=== PATIENT | male | born 1995 | race African-American/Black ===

== ENCOUNTER 2024-05-23 23:13 | Day surgery (SDC) | payer OTHER, SELFPAY ==
[2024-05-23] VITALS (19 sets, daily range): BP systolic 88–131; BP diastolic 39–93; BMI 24.1
[2024-05-23] MEDS: ATIVAN 2 MG IV (21:42)
[2024-05-23 21:44] LABS: % Basophils 0.3 % (0-2); % Eosinophils 0.4 % (0-6); % Immature Granulocytes 0.3 % (0-0.5); % Lymphocytes 38.5 % (20.5-51.1); % Monocytes 5.5 % (1.7-9.3); Absolute Eosinophils 0.1 10^3/uL (0-0.7); Absolute Lymphocytes 5.2 10^3/uL (1.2-3.4); Absolute Monocytes 0.7 10^3/uL (0.1-0.6); Absolute Neutrophils 7.4 10^3/uL (1.4-6.5); Hematocrit 37.7 % (39.0-52.0); Hemoglobin 13.5 g/dL (13.0-18.0); Mean Corp Hgb Conc. 35.8 g/dL (33.0-37.0); Mean Corpuscular Hgb 29.9 pg (27.0-31.0); Mean Corpuscular Volume 83.4 fL (80.0-94.0); Mean Platelet Volume 10.4 fL (7.4-10.4); Nucleated Red Blood Cells % 0 % (-); Platelet Count 305 10^3/uL (130-400); Red Blood Cell Count 4.52 10^6/uL (4.70-6.10); Red Cell Dist. Width 11.7 % (11.5-14.5); White Blood Cell Count 13.4 10^3/uL (4.8-10.8)
--- NOTE | 2024-05-23 21:53 | ED.GENMED ---
History of Present Illness
<NICHOLE Reynoso Jr. Last Filed: 05/23/24 22:14>
General
Chief Complaint: Foreign Body Ingestion
Source: patient and police
Exam Limitations: none
Time Seen by Provider: 05/23/24 17:25
Nursing documentation reviewed up to this point in time: agreed with
History of Present Illness
History of Present Illness:
28-year-old male [facility] after swallowing a 'FlexPen'. He did this due to being upset that he was going to a restrictive housing unit. Denies any additional symptoms or chest pain shortness of breath nausea vomiting. Able to
tolerate secretions did not do this in an attempt to harm himself.
Review of Systems
<NICHOLE Reynoso Jr. Last Filed: 05/23/24 22:14>
Review of Systems
Allergies reviewed?: Yes
All Other Systems: ROS reviewed and negative except as documented in HPI and ROS
Phy Exam
<NICHOLE Reynoso Jr. Last Filed: 05/23/24 22:14>
Physical Exam
Physical Exam:
GENERAL: Alert , in no apparent distress
EYE: pupils equal and reactive
NECK: Supple, no significant adenopathy.
ENT: o/p clr, mmm.
CARDIAC: Regular rate and rhythm .
LUNGS: Clear breath sounds bilaterally, no acute respiratory distress, no wheezes/rales/rhonchi
ABDOMEN: Soft, without focal tenderness, no r/g, no cvat
NEUROLOGICAL: Alert and oriented, no focal neuro deficits
SKIN: Warm and dry, skin intact.
MUSCULOSKELETAL: No edema, well perfused.
PSYCH: Normal and appropriate interaction.
Course
<NICHOLE Reynoso Jr. Last Filed: 05/23/24 22:14>
Orders/Labs/Results
Orders:
Orders
05/23/24 17:02
Portable Chest Xray [CR Chest Portable - 1 View] Urgent
Comment:
Reason For Exam: fopreign body ingestion
Reason Study Needs to be Portable: Unable to Transport
05/23/24 17:32
CT Chest W/o Iv Contrast Urgent
Comment:
Reason For Exam: swallowed plastic pen, possible stuck in esophagus
CT Neck W/o Iv Contrast Urgent
Comment:
Reason For Exam: swallowed plastic pen, possible stuck in esophagus
05/23/24 21:30
Haloperidol Lactate [Haldol] 5 mg IV NOW STA
Lorazepam [Ativan] 2 mg IV NOW STA
05/23/24 21:31
Dexamethasone Sod Phosphate [Decadron] 20 mg .ROUTE .STK-MED ONE
Lorazepam [Ativan] 2 mg .ROUTE .STK-MED ONE
05/23/24 21:32
Lidocaine HCl/Pf [Xylocaine-Mpf 1% Vial] 50 mg .ROUTE .STK-MED ONE
Ondansetron Injectable [Zofran] 4 mg .ROUTE .STK-MED ONE
Propofol [Diprivan] 40 ml .ROUTE .STK-MED
Rocuronium [place] [Rocuronium] 50 mg .ROUTE .STK-MED ONE
Succinylcholine Chloride [Succinylcholine] 200 mg .ROUTE .STK-MED ONE
Sugammadex Sodium [Bridion] 200 mg .ROUTE .STK-MED ONE
05/23/24 21:38
BMP [Basic Metabolic Panel] Urgent
Rocuronium [place] [Rocuronium] 50 mg .ROUTE .STK-MED ONE
05/23/24 21:39
CBC/With Diff [Complete Blood Count/With Diff] Urgent
05/23/24 21:56
Midazolam HCl [Versed] 2 mg .ROUTE .STK-MED ONE
Abnormal Lab Results
05/23/24 05/23/24
21:38 21:39
WBC 13.4 H 10^3/uL
(4.8-10.8)
RBC 4.52 L 10^6/uL
(4.70-6.10)
Hct 37.7 L %
(39.0-52.0)
Absolute Neuts (auto) 7.4 H 10^3/uL
(1.4-6.5)
Absolute Lymphs (auto) 5.2 H 10^3/uL
(1.2-3.4)
Absolute Monos (auto) 0.7 H 10^3/uL
(0.1-0.6)
Carbon Dioxide 18 L mmol/L
(22-30)
Glucose 128 H mg/dl
(70-99)
05/23/24 21:39
05/23/24 21:38
Vital Signs
Initial and Last Documented VS:
Initial Vital Signs
BP Pulse Ox
131/76 100
05/23/24 16:48 05/23/24 16:48
Last Documented Vital Signs
Temp Pulse Resp BP Pulse Ox
98.1 F 87 23 128/74 99
05/23/24 16:49 05/23/24 20:00 05/23/24 20:00 05/23/24 21:45 05/23/24 21:45
<Yann Campos, DO - Last Filed: 05/23/24 22:06>
Orders/Labs/Results
Orders:
Orders
05/23/24 17:02
Portable Chest Xray [CR Chest Portable - 1 View] Urgent
Comment:
Reason For Exam: fopreign body ingestion
Reason Study Needs to be Portable: Unable to Transport
05/23/24 17:32
CT Chest W/o Iv Contrast Urgent
Comment:
Reason For Exam: swallowed plastic pen, possible stuck in esophagus
CT Neck W/o Iv Contrast Urgent
Comment:
Reason For Exam: swallowed plastic pen, possible stuck in esophagus
05/23/24 21:30
Haloperidol Lactate [Haldol] 5 mg IV NOW STA
Lorazepam [Ativan] 2 mg IV NOW STA
05/23/24 21:31
Dexamethasone Sod Phosphate [Decadron] 20 mg .ROUTE .STK-MED ONE
Lorazepam [Ativan] 2 mg .ROUTE .STK-MED ONE
05/23/24 21:32
Lidocaine HCl/Pf [Xylocaine-Mpf 1% Vial] 50 mg .ROUTE .STK-MED ONE
Ondansetron Injectable [Zofran] 4 mg .ROUTE .STK-MED ONE
Propofol [Diprivan] 40 ml .ROUTE .STK-MED
Rocuronium [place] [Rocuronium] 50 mg .ROUTE .STK-MED ONE
Succinylcholine Chloride [Succinylcholine] 200 mg .ROUTE .STK-MED ONE
Sugammadex Sodium [Bridion] 200 mg .ROUTE .STK-MED ONE
05/23/24 21:38
BMP [Basic Metabolic Panel] Urgent
Rocuronium [place]ley [Rocuronium] 50 mg .ROUTE .STK-MED ONE
05/23/24 21:39
CBC/With Diff [Complete Blood Count/With Diff] Urgent
05/23/24 21:56
Midazolam HCl [Versed] 2 mg .ROUTE .STK-MED ONE
Abnormal Lab Results
05/23/24 05/23/24
21:38 21:39
WBC 13.4 H 10^3/uL
(4.8-10.8)
RBC 4.52 L 10^6/uL
(4.70-6.10)
Hct 37.7 L %
(39.0-52.0)
Absolute Neuts (auto) 7.4 H 10^3/uL
(1.4-6.5)
Absolute Lymphs (auto) 5.2 H 10^3/uL
(1.2-3.4)
Absolute Monos (auto) 0.7 H 10^3/uL
(0.1-0.6)
Carbon Dioxide 18 L mmol/L
(22-30)
Glucose 128 H mg/dl
(70-99)
05/23/24 21:39
05/23/24 21:38
Vital Signs
Initial and Last Documented VS:
Initial Vital Signs
BP Pulse Ox
131/76 100
05/23/24 16:48 05/23/24 16:48
Last Documented Vital Signs
Temp Pulse Resp BP Pulse Ox
98.1 F 87 23 128/74 99
05/23/24 16:49 05/23/24 20:00 05/23/24 20:00 05/23/24 21:45 05/23/24 21:45
<Jasen Aguilera Jr., PA-C - Last Filed: 05/23/24 22:14>
MDM/Problems Addressed
MDM/Problems Addressed:
48-year-old male presenting after swallowing a flex pen from present. No distress here tolerating secretions normal heart lung exam normal abdominal examination normal posterior pharynx vital signs normal. CT scan showing potential foreign body at
the gastric duodenal junction. Case discussed with GI that will take him to the GI suite for foreign body removal. Otherwise if it cannot be visualized plan for repeated x-rays as an outpatient.
2150: Patient was becoming agitated that he was being restrained due to being a prisoner with the [facility]. He was being very combative with the [facility] guards patient was given dose of Ativan to help calm him down. This seemed to work very
well. Patient left for the GI suite in stable condition in no distress.
<Yann Campos DO - Last Filed: 05/23/24 22:06>
*Critical Care Note
Total Time (30-74mins, 75-104mins- exclusive of procedures): 30 minutes
ED Attending Note
<Jasen Aguilera Jr., PA-C - Last Filed: 05/23/24 22:14>
-
Portions of this chart may have been created with voice recognition software.� Occasional wrong word or��sound alike� substitutions may have occurred due to the inherent limitations of voice recognition software.
<Yann Campos DO - Last Filed: 05/23/24 22:06>
ED Attending Note
Patient seen and examined by attending physician: Yes
I performed the substantive portion of visit, reviewed & personally made and approve the management plan that is documented in note by myself or AUSTEN.: Yes
ED Attending Note:
28-year-old male presents after he swallowed a foreign body. called to room as pt acting out. attempted to swallow iv caps. spit them out. d/w GI. will take to endo suite.
Discharge Plan
Departure
Patient Disposition: OR
Date of Disposition: 05/23/24
Time of Disposition: 21:53
Admit to: GI lab
Admit to doctor: Dawson
Presentation/result/management discussed w/ accepting MD/DO: GI doctor
Patient with high blood pressure during this ER visit?: No
Condition: Fair
Covid-19: Not Applicable
Discharge Problem:
Foreign body, swallowed, Agitation
Instructions: Swallowed Objects, Adult (DC), MODERATE SEDATION ADULT
Referrals:
[facility] [Family Provider] -
Activity Restrictions/Additional Instructions:
You came to the emergency department today with concerns of a swallowed foreign body. Please do not do this in the future. Return for any worsening, new or concerning symptoms.
Interventions
Interventions:
*Risk Screen - Suicide Last Done: 05/23/24 16:49
*General Assessment Last Done: 05/23/24 16:49
*Neglect/Abuse Screening Last Done: 05/23/24 16:49
ED- Fall Risk Assessment Last Done: 05/23/24 18:13
*ED COVID-19 Vaccine History Last Done: 05/23/24 18:13
AV-Gubfhv-Fdkeorvlvq Assessment Last Done: 05/23/24 18:13
ED- Pulmonary Assessment Last Done: 05/23/24 18:13
ED-EENT Assessment Last Done: 05/23/24 18:13
Discharge Date and Time
Print Language: WOLOF
[2024-05-23 21:59] LABS: Blood Urea Nitrogen 10 mg/dl (9-20); Calcium 9.5 mg/dl (8.4-10.2); Carbon Dioxide 18 mmol/L (22-30); Chloride 101 mmol/L (98-107); Estimated Creatinine Clearance > 125 ml/min; Glucose 128 mg/dl (70-99); Potassium 3.5 mmol/L (3.5-5.1); Sodium 141 mmol/L (135-145); eGFR > 60.00
--- NOTE | 2024-05-23 22:00 | CON.GI ---
Consultation
-
Date/Time Consultation Requested: 05/23/24 8:54pm
Date/Time Consultation Performed: 05/23/24 10:01pm
Requesting Provider: Jasen Aguilera
Performing Provider: Andrade Osman
Reason for Consultation: foreign body ingestion
Medical History
Chief Complaint / HPI
Chief Complaint: foreign body ingestion
History of Present Illness:
28yo prisoner ingested a flex pen cap tonight. Reported CP on admission. Chest CT showed foreign body likely at gastroduodenal junction.
Past Medical History
Past Medical History: None (Pt self reports diabetes)
Past Surgical History: None
Social History
Living: Intermediate
Family History
Family History: Reviewed & Not Pertinent
Allergies / Home Medications
Allergy/AdvReac Type Severity Reaction Status Date / Time
diphenhydramine Allergy Severe Swelling Verified 05/23/24 16:48
[From Benadryl]
Review of Systems
-
All other systems: A 12 pt ROS was Negative except as stated above in HPI
Vital Signs
Temp Pulse Resp BP Pulse Ox
98.1 F 87 23 128/74 99
05/23/24 16:49 05/23/24 20:00 05/23/24 20:00 05/23/24 21:45 05/23/24 21:45
Physical Exam
Exam
General: Well Developed, Well Nourished and Other (combative with staff)
HEENT: Normocephalic
Respiratory: Non Labored Respirations
GI: Soft, Non Tender and Non Distended
Psych: Agitated
Results
WBC 13.4 10^3/uL (4.8-10.8) H 05/23/24 21:39
Hgb 13.5 g/dL (13.0-18.0) 05/23/24 21:39
Hct 37.7 % (39.0-52.0) L 05/23/24 21:39
MCV 83.4 fL (80.0-94.0) 05/23/24 21:39
Plt Count 305 10^3/uL (130-400) 05/23/24 21:39
Absolute Neuts (auto) 7.4 10^3/uL (1.4-6.5) H 05/23/24 21:39
Sodium 141 mmol/L (135-145) 05/23/24 21:38
Potassium 3.5 mmol/L (3.5-5.1) 05/23/24 21:38
Chloride 101 mmol/L (98-107) 05/23/24 21:38
Carbon Dioxide 18 mmol/L (22-30) L 05/23/24 21:38
BUN 10 mg/dl (9-20) 05/23/24 21:38
Creatinine 0.9 mg/dL (0.7-1.3) 05/23/24 21:38
Calcium 9.5 mg/dl (8.4-10.2) 05/23/24 21:38
Diagnostic Image Results:
Prior GI Procedures:
EGD:
Colonoscopy:
Assessment / Plan
-
Impression:
Foreign body ingestion
Recommendations:
Will attempt to retrieve flex pen cap if it remains in stomach or proximal small bowel
If unable to locate, would recommend serial xray to follow foreign body until passage (though may not be visible as it is plastic). It is soft and should be able to pass untraumatically. Send back to ER if abd pain or distress
-
-
Thank you for consultation and allowing me to participate in the patient's care. Please call the [facility] GI physician during the after hours with any questions or concerns.
== END 2024-05-23 23:45 ==
LOC: SDS 23:13
PROVIDERS: Physician Assistant; ATTENDING PHYSICIAN Specialist; EMERGENCY PHYSICIAN Emergency Medicine
DX: T18.3XXA Foreign body in small intestine, initial encounter (principal); W44.8XXA Other foreign body entering into or through a natural orifice, initial encounter; R45.1 Restlessness and agitation
CPT/HCPCS: 43247; 70490; 71045; 71250; 80048; 85025